=== PATIENT | female | born 1970 | race African-American/Black ===

== ENCOUNTER 2017-08-06 11:16 | Emergency (ER) | payer OTHER ==
[~2017-08-06] VITALS: Ht 157.5 cm; Wt 54.4 kg
[2017-08-06 11:41] VITALS: BP 177/101
[2017-08-06] MEDS ORDERED: TYLENOL EXTRA500 MG ORAL (11:45)
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
[2017-08-06] MEDS ORDERED: ACETAMINOPHEN-1 EAC1 ORAL (12:20)
[2017-08-06] MEDS ORDERED: Norco 5mg/325mg tab ORAL ONE (12:30)
[2017-08-06 12:35] VITALS: BP 173/110
== END 2017-08-06 12:40 | disposition home or self-care (01) ==
LOC: EMR 12:12
DX: M25.552 Pain in left hip (principal)
CPT/HCPCS: 99283

== ENCOUNTER 2017-10-26 11:26 | Emergency (ER) | payer OTHER ==
[~2017-10-26] VITALS: Ht 160 cm; Wt 54.4 kg
[~2017-10-26 11:26] MED LIST: ACETAMINOPHEN-1 EAC1 ORAL; TYLENOL EXTRA500 MG ORAL
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
[2017-10-26] MEDS ORDERED: ROBAXIN500 MG PO (12:37)
[2017-10-26] MEDS ORDERED: LIDODERM700 M1 TOPIC (12:37)
[2017-10-26 13:17] VITALS: BP 113/78
[2017-10-26 13:18] VITALS: BP 113/78
== END 2017-10-26 12:49 | disposition home or self-care (01) ==
LOC: EMR 12:40
DX: M25.552 Pain in left hip (principal); M79.662 Pain in left lower leg; G89.29 Other chronic pain
CPT/HCPCS: 99283